=== PATIENT | male | born 1965 | race Caucasian/White ===

== ENCOUNTER 2023-06-21 14:34 | Emergency (ER) | payer BC, SELFPAY ==
--- NOTE | ~2023-06-21 | XR_ITS ---
EXAMINATION: XR LUMBOSACRAL SPINE CLINICAL INFORMATION: Pain radiating down right leg. COMPARISON: None available. TECHNIQUE: Three views of the lumbosacral spine. FINDINGS: There are 5 nonrib-bearing lumbar vertebrae. Lumbar spinal alignment is anatomic in the sagittal projection. The lumbar vertebrae demonstrate preserved stature. There is mild narrowing of the L5-S1 intervertebral disc space. There is mild facet arthropathy at L4-L5 and L5-S1. No fracture. The sacroiliac joints are maintained. The bowel gas pattern is nonobstructive. XR/XR lumbar spine 2-3V IMPRESSION: Minimal degenerative disc disease at L5-S1. No acute osseous abnormality.
--- NOTE | 2023-06-21 14:42 | ED_ITS ---
HPI - Back Pain/Injury General Chief Complaint: Back Pain/Injury Stated Complaint: Back pain after sneezing Time Seen by Provider: 06/21/23 14:42 Source: patient, EMS and RN notes reviewed Mode of arrival: EMS Limitations: no limitations History of Present Illness HPI Narrative: Patient is a 58-year-old male presenting to the emergency department with sudden onset right lower back pain radiating down right leg. He reports he developed low back pain in April, was seen at urgent care and prescribed Flexeril and prednisone which improved his symptoms. Did not have any imaging at urgent care. States that the pain was still present but more manageable. Today, he sneezed and instantly developed severe back pain. He denies any precipitating fall or other trauma. Denies fevers. Denies saddle anesthesia or bowel or bladder incontinence. Denies any IV drug use. Took Tylenol this morning at 8 and ibuprofen at 11:00 a.m.. Denies any urinary frequency, dysuria, hematuria or other urinary symptoms. MD elicited complaint: back pain Pertinent past history: prior back pain Onset (ago): minute(s) Timing: constant Severity: severe Pain scale (0-10): 9 Similar Symptoms Previously: Yes Quality: burning Location: lumbar spine Radiation: right leg below the knee Exacerbating factors: movement Relieving factors: none Context: other (After sneezing) Associated symptoms: denies other symptoms Work related injury: No Related Data Previous Rx's Medication Instructions Recorded cyclobenzaprine 5 mg tablet 5 mg PO TID PRN muscle spasm #12 06/21/23 tabs ibuprofen 600 mg tablet 600 mg PO Q6H PRN pain #20 tabs 06/21/23 lidocaine 5 % topical patch 1 patch topical DAILY #15 ea 06/21/23 prednisone 50 mg tablet 50 mg PO DAILY #4 tabs 06/21/23 Allergies Allergy/AdvReac Type Severity Reaction Status Date / Time No Known Allergies Allergy Unverified 02/08/20 16:51 [No Known Allergies*] Review of Systems Review of Systems: As per HPI. Yes all other systems are reviewed and are negative Constitutional: Constitutional: Reports as per HPI [facility] Social History Social History Smoked in Last 30 Days: No Use of substances other than those prescribed or required for medical reasons: No Advance Directives: No Advance Directives Information Provided: Yes Physical Exam Vital Signs: Vital Signs: Last Vital Signs Temp 97.7 F 06/21/23 15:05 Pulse 66 06/21/23 15:05 Resp 18 06/21/23 15:05 BP 158/89 H 06/21/23 14:50 Pulse Ox 98 06/21/23 15:05 O2 Del Method Room Air 06/21/23 15:05 BMI result Body Mass Index 27.3 Vital signs have been reviewed and appear to be correct. Blood pressure elevated. Heart rate normal. Respiratory rate normal. Temperature normal. Oxygen saturation normal. Const: General: cooperative, healthy appearing and no acute distress Orientation/consciousness: oriented to person, oriented to place, oriented to time and patient oriented x3 Limitations: no limitations HEENT: Head: Yes normocephalic and Yes atraumatic Ears: external ears normal General nose exam: Normal external nose present Face and sinus: Yes face symmetric Mouth: oropharynx normal and moist mucous membranes Throat: Yes uvula midline Eyes: Pupils: Equal, round and reactive pupils present Neck: Neck: Yes normal visual inspection and Yes supple Resp: Effort & Inspection: normal respiratory effort and able to speak in complete sentences Auscultation: clear to auscultation bilaterally Cardio: Rate: regular rate Rhythm: regular rhythm Heart sounds: S1 normal heart sound present and S2 normal heart sound present GI: Palpation (GI): Soft to palpation and nontender Auscultation: normoactive bowel sounds : General: Yes no CVA tenderness Back/Spine/Pelvis: Back: no CVA tenderness Cervical Spine: normal cervical lordosis, cervical ROM normal, No cervical muscular tenderness, No Cervical spine tenderness and No step off deformity Thoracic/Lumbar Spine: thoracic and lumbar spine normal to inspection, thoraco-lumbar ROM normal, pain with thoraco-lumbar ROM, No paraspinal muscle tenderness, No thoracic spinal tend erness, No lumbar spinal tenderness and straight leg raise positive right at 30 degrees Sacroiliac joints: bilaterally nontender Skin: General skin exam: elasticity normal and turgor normal Neuro: General: oriented to person, oriented to place, oriented to time, pa tient oriented x3, tone normal, moves all extremities, Normal light touch and pain sensation, no focal motor deficits, CN's II-XI intact bilaterally, deep tendon reflexes 2+ bilaterally and Unable to assess gait Cranial nerves: Yes Equal, round and reactive pupils present Cognition (Neuro): normal cognition Gait exam (Neuro): Unable to assess gait Motor exam (neuro): Abnormal motor strength present right lower extremity flexion 4 / 5, extension 4 / 5, ABduction 4 / 5, ADduction 4 / 5 and opposition 4 / 5 Sensory Exam: Normal double simultaneous stimulation for sensation Extrem: General: Yes full ROM, Yes no pedal edema and Yes no calf tenderness Psych: Mental Status: mental status grossly normal Affect: normal affect Thought process: Normal thought process present Medications Administered Discontinued Medications Generic Name Dose Route Start Last Admin Trade Name Michael PRN Reason Stop Dose Admin Cyclobenzaprine HCl 10 mg 06/21/23 14:52 06/21/23 15:08 Cyclobenzaprine Hcl 10 Mg Tablet PO 06/21/23 14:53 10 mg ONCE ONE Administration Ketorolac Tromethamine 30 mg 06/21/23 14:52 06/21/23 15:08 Ketorolac Tromethamine 30 Mg/Ml Vial IM 06/21/23 14:53 30 mg ONCE ONE Administration Prednisone 50 mg 06/21/23 14:52 06/21/23 15:08 Prednisone 10 Mg Tablet PO 06/21/23 14:53 50 mg ONCE ONE Administration Medical Decision Making Medical Decision Making [facility] Narrative: Patient is a 58-year-old male presenting to the emergency department with sudden onset right lower back pain radiating down right leg. On exam patient is awake, A+Ox3, VS WNL, afebrile, normal neurological exam without focal deficits, physical exam findings as above. Given reported symptoms and physical exam findings, initial differential includes lumbar strain, lumbar radiculopathy, disc herniation, degenerative disease, spondylolisthesis. Less likely UTI but will check UA. Do not suspect SEA, cauda equina/cored compression. X-ray notable for minimal degenerative disc disease at L5/S1. My interpretation is in agreement with the radiologist's interpretation. Patient reports good improvement in pain with medications given in the ED. Will discharge patient home with cyclobenzaprine, lidocaine patches, prednisone. Return precautions discussed with patient and . Instructed patient follow-up with primary care provider. Patient verbalized understanding of and agreement with plan. Differential Diagnosis Differential Diagnoses: The differential diagnosis associated with the presentation includes As per [facility] Admission/Observation Consideration of admission/observation: Escalation of care including admission/observation considered Independent Interpretation I performed an independent interpretation of an: Plain X-Ray Interpretation: Mild degenerative disc disease at L5-S1 Radiology Impression Discussion of test interpretation with radiology: I have reviewed the radiologist's reading. Radiologist Impression: XR/XR lumbar spine 2-3V IMPRESSION: Minimal degenerative disc disease at L5-S1. No acute osseous abnormality. External Record Review External record reviewed: Inpatient record, Office record and Outpatient record Prescription Management I considered prescription management with: Pain Medication and Other Discharge Plan Discharge Clinical Impression: Lumbar radiculopathy Patient Disposition: Home, Self-Care Instructions: Acute Low Back Pain (ED), Lumbar Radiculopathy (ED) Additional Instructions: You were evaluated in the emergency department today for back pain. Your evaluation did not show signs of medical conditions requiring emergent int ervention at this time. We recommended that you use ibuprofen or Tylenol per package directions every 6 hours as needed for pain. If necessary, you can alternate these medications so that you take one medication every 3 hours. For instance, at noon take ibuprofen, then at 3:00 p.m. take Tylenol, then at 6:00 p.m. take ibuprofen. You have been prescribed a muscle relaxer which you may take every 8 hours as needed for spasms. You are being prescribed a short course of steroids to decrease inflammation. You have been prescribed 5% topical lidocaine patches which you can wear for up to 12 hours in a 24 hour period. Do not apply heat directly over the patches. Please schedule an appointment for follow-up with your primary care physician this week for further evaluation of your symptoms. Return to the emergency department if you experience worsening back pain, difficulty walking, fevers, numbness, tingling, incontinence, groin numbness or tingling, or any other concerning symptoms. Prescriptions: New cyclobenzaprine 5 mg tablet 5 mg PO TID PRN (Reason: muscle spasm) Qty: 12 0RF lidocaine 5 % adhesive patch,medicated 1 patch topical DAILY Qty: 15 0RF Rx Instructions: leave on most painful area for up to 12 hrs prednisone 50 mg tablet 50 mg PO DAILY Qty: 4 0RF ibuprofen 600 mg tablet 600 mg PO Q6H PRN (Reason: pain) Qty: 20 0RF Stand Alone Forms: Work/School Release
[2023-06-21 14:50] VITALS: BP 158/89; BP 170/100; PULSE 74; PULSE 80; RESP 16; TEMP 36.6; O2SAT 98; O2SAT 99; BMI 27.3
[2023-06-21 15:05] VITALS: PULSE 66; RESP 18; TEMP 36.5; O2SAT 98
[2023-06-21] MEDS: predniSONE 10 MG TABLET 50 MG PO (15:08)
[2023-06-21] MEDS: Ketorolac Tromethamine 30 MG/ML VIAL IM (15:08)
[2023-06-21] MEDS: Cyclobenzaprine HCl 10 MG TABLET PO (15:08)
--- NOTE | 2023-06-21 15:27 | PC.NURSE ---
a&ox4. vss and up to date. pt presents to the ED d/t lower back pain that radiates to the RLE. pt denies numbness/tingling. pt rates pain at a 7/10. states he was lifting a bookshelf 1 week ago and has the pain ever since. pt states he sneezed 1 time today and the pain increased tremendously. no sob/wob noted. respirations even and unlabored. medication administered per provider order. pt currently going to xray at this time. bedside. call [facility] placed within reach.
== END 2023-06-21 16:33 | disposition home or self-care (01) ==
PROVIDERS: Emergency Provider Emergency Medicine; PCP Internal Medicine
DX: M54.50 Low back pain, unspecified (principal); M54.16 Radiculopathy, lumbar region
CPT/HCPCS: 72100; 96372; 99284; J1885